=== PATIENT | male | born 1990 ===

== ENCOUNTER → 2016-09-02 | Outpatient (CLI) | payer OTHER | LOC: MHCPAIN 08:12 | DX: G89.29 Other chronic pain (principal); M47.817 Spondylosis without myelopathy or radiculopathy, lumbosacral region; M53.3 Sacrococcygeal disorders, not elsewhere classified | CPT/HCPCS: G0463 ==

== ENCOUNTER → 2016-09-05 | Outpatient (CLI) | payer OTHER | LOC: MHCPAIN 08:27 | DX: M47.817 Spondylosis without myelopathy or radiculopathy, lumbosacral region (principal) ==

== ENCOUNTER → 2016-09-13 | Outpatient (CLI) | payer OTHER | LOC: MHCPAIN 08:02 | DX: G89.29 Other chronic pain (principal); M47.817 Spondylosis without myelopathy or radiculopathy, lumbosacral region; M53.3 Sacrococcygeal disorders, not elsewhere classified | CPT/HCPCS: G0463 ==

== ENCOUNTER → 2016-09-19 | Outpatient (CLI) | payer OTHER | LOC: MHCPAIN 09:07 | DX: M47.817 Spondylosis without myelopathy or radiculopathy, lumbosacral region (principal) ==

== ENCOUNTER → 2016-09-25 | Outpatient (CLI) | payer OTHER | LOC: MHCPAIN 09:10 | DX: G89.29 Other chronic pain (principal); M47.27 Other spondylosis with radiculopathy, lumbosacral region | CPT/HCPCS: G0463 ==